=== PATIENT | male | born 1990 | race Caucasian/White ===

== ENCOUNTER 2018-04-06 00:47 | Emergency (ER) | payer SELFPAY ==
--- NOTE | 2018-04-06 02:55 | RADIOLOGY REPORT (SQ) ---
EXAM DESCRIPTION: XR KNEE 4 OR MORE VIEWS COMPLETED DATE/TME: 04/06/2018 00:00 CLINICAL HISTORY: 27 years, Male, injury COMPARISON: None. FINDINGS: 4 views of the left knee. No acute fracture or dislocation. Normal osseous mineralization. Possible small joint effusion. IMPRESSION: 1. No acute fracture or dislocation. 2. Possible small joint effusion. If there is concern for internal derangement correlation with MRI may be helpful. 2011 [employer]- All Rights Reserved
[2018-04-06] MEDS ORDERED: KETOROLAC TROMETHAMINE 60 MG/2 ML SDV IM ONE (08:46)
--- NOTE | 2018-04-06 09:58 | ER Document Report ---
ED Extremity Problem, Lower - General Chief Complaint: Knee Injury Stated Complaint: KNEE INJURY Time Seen by Provider: 04/06/18 05:05 Mode of Arrival: Ambulatory Information source: Patient Notes: Patient is a 27-year-old male comes emergency room complaining of left knee pain. Patient states he was jumping on a trampoline last night about 11 PM he came down he noticed that his left knee bent backwards. He has had difficulty ambulating with it ever since. Patient denies any history of trauma to this knee in the past. Has difficult time straightening it completely out. Denies any other medical problems. TRAVEL OUTSIDE OF THE [place] IN LAST 30 DAYS: No - HPI Patient complains to provider of: Injury, Pain, Swelling Location: Knee Occurred: This evening Where: Home Onset/Duration: Sudden Quality of pain: Sharp, Throbbing Severity: Moderate Pain Level: 3 Recent injury: Yes Associated symptoms: [place] a crack, Unable to bear weight Exacerbated by: Movement, Walking Relieved by: Nothing - Related Data Allergies/Adverse Reactions: No Known Allergies Allergy (Unverified 04/06/18 00:52) Past Medical History - General Information source: Patient - Social History Smoking Status: Current Every Day Smoker Cigarette use (# per day): Yes - 1 pack per day Chew tobacco use (# tins/day): Yes Smoking Education Provided: Yes Frequency of alcohol use: Rare Drug Abuse: None 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 Lives with: Family Family History: Reviewed & Not Pertinent Patient has suicidal ideation: No Patient has homicidal ideation: No Renal/ Medical History: Denies: Hx Peritoneal Dialysis Review of Systems - Review of Systems Constitutional: No symptoms reported EENT: No symptoms reported Cardiovascular: No symptoms reported Respiratory: No symptoms reported Gastrointestinal: No symptoms reported Genitourinary: No symptoms reported Male Genitourinary: No symptoms reported Musculoskeletal: Joint pain, Joint swelling, Leg swelling Skin: No symptoms reported Hematologic/Lymphatic: No symptoms reported Neurological/Psychological: No symptoms reported -: Yes All other systems reviewed and negative Physical Exam - Vital signs Vitals: Temp Pulse Resp BP Pulse Ox 98.6 F 114 H 16 159/104 H 98 04/06/18 01:00 04/06/18 01:00 04/06/18 01:00 04/06/18 01:00 04/06/18 01:00 Interpretation: Hypertensive, Tachycardic - Notes Notes: Very uncomfortable appearing male. - General General appearance: Alert In distress: Mild - HEENT Head: Normocephalic, Atraumatic Eyes: Normal Conjunctiva: Normal - Respiratory Respiratory status: No respiratory distress Chest status: Nontender Breath sounds: Normal. No: Rales, Rhonchi, Stridor, Wheezing Chest palpation: Normal - Cardiovascular Rhythm: Regular Heart sounds: Normal auscultation Murmur: No - Back Back: Normal, Nontender - Extremities General upper extremity: Normal inspection, Nontender, Normal ROM, Normal strength General lower extremity: Tender, Edema, Normal temperature, Grady's sign. No: Normal ROM, Normal strength, Normal weight bearing Knee: Tender, Drawer's test instability, Joint effusion, Laxity with valgus stress, Laxity with varus stress, Pain with ROM, Unable to bear weight, Other - Examination of patient's left knee shows moderate amount of swelling. Warmth secondary to swelling is been noted as compared to the right knee. As stated there is some laxity pupils valgus and varus. Patient has good distal pulses on the dorsalis pedis. Has good flexion-extension of the ankle with rotation. Patient cannot fully extend the knee. Probably about a 20 lack of total extension and he has probably 35-40 of flexion. He has a good popliteal pulse. There is no sign of abrasions or ecchymosis. Calf: Normal, Nontender Ankle: Normal, Nontender. No: Edema, Instability, Unable to bear weight - Neurological Neuro grossly intact: Yes Cognition: Normal Orientation: AAOx4 Prakash Coma Scale Eye Opening: Spontaneous [place] Coma Scale Verbal: Oriented Prakash Coma Scale Motor: Obeys Commands Prakash Coma Scale Total: 15 Speech: Normal - Skin Skin Temperature: Warm Skin Moisture: Dry Skin Color: Normal Course - Re-evaluation Re-evalutation: 04/06/18 10:01 It is obvious of patient's left knee is swollen and tender. And it is evident this is probably internal derangement of the knee itself. He is going to have to follow-up with orthopedist on discharge. Given the name of the orthopedic supervisor cell operation today. He may follow-up with his primary also for a referral if it is required. We will keep him in a knee immobilizer until he sees orthopedist. Continue with ice we will put him on anti-inflammatory medication for inflammation as well. - Vital Signs Vital signs: Temp Pulse Resp BP Pulse Ox 99.2 F 74 18 151/91 H 99 04/06/18 08:03 04/06/18 08:03 04/06/18 08:03 04/06/18 08:03 04/06/18 08:03 Procedures - Immobilization Left Medial Knee Pre-Proc Neuro Vasc Exam: Normal Immobilizer type: Knee immobilizer Performed by: RN Post-Proc Neuro Vasc Exam: Normal Alignment checked and good: Yes Discharge - Discharge Clinical Impression: Internal derangement of left knee Condition: Stable Disposition: HOME, SELF-CARE Instructions: Use of Crutches ([facility]), Ice & Elevation ([facility]), Suspected Internal Knee Injury ([facility]), Knee Immobilizing Splint ([facility]), Oral Narcotic Medication ([facility] ), Sprained Knee ([facility]) Additional Instructions: Home today and rest. Ice to the knee 3-4 times a day. Use the immobilizer at all times including sleeping. You may loosen it at night for sleeping. This is a type injury that he will have to see an orthopedic with. He may follow-up with your primary care to get a referral or I will give you the referral to the orthopedic service supervisor cell operation today here for the hospital and you may contact his office to see if he can accommodate you. Your ice is going to be a best friend for the next [id number] hours please ice it down. Icing times anywhere from 30-45 minutes at a time. Use a light cloth to cover the knee before placing ice packs on it. Should you have any concerns or problems return to ER for recheck. Prescriptions: Hydrocodone/Acetaminophen [[place] 7.5-325 mg Tablet] 1 tab PO Q6 PRN #10 tablet PRN Reason: Ibuprofen 800 mg PO TID #30 tablet Referrals: BRENDA FLORES DO [ACTIVE STAFF] - Follow up as needed
[2018-04-06 10:11] VITALS: BP 165/99
== END 2018-04-06 10:16 | disposition home or self-care (01) ==
LOC: ER 00:47
DX: S89.82XA Other specified injuries of left lower leg, initial encounter (principal); M25.562 Pain in left knee; X50.0XXA Overexertion from strenuous movement or load, initial encounter; Y93.44 Activity, trampolining; Y92.009 Unspecified place in unspecified non-institutional (private) residence as the place of occurrence of the external cause; F17.210 Nicotine dependence, cigarettes, uncomplicated
CPT/HCPCS: 99283; 96372; 73564; L1830; J1885